=== PATIENT | female | born 1960 | race Caucasian/White ===

== ENCOUNTER → 2017-09-06 15:12 | Outpatient (CLI) | payer OTHER, SELFPAY ==
--- NOTE | 2017-09-06 15:15 | HPBI_ITS ---
MAMMOGRAPHY - BILATERAL SCREENING REASON FOR EXAM: Female, 56 years old. Routine annual screening examination. PERTINENT HISTORY: Non-contributory. TECHNIQUE: Digital bilateral breast sergey (3D mammographic acquisition) in the CC and MLO projections. 2-D mediolateral oblique (MLO) and craniocaudad (CC) views of both breasts were obtained. CAD: Full Field Digital Mammography with Computer Added Detection was performed. COMPARISON: Comparison is made with prior study dated May 18, 2016 and February 11, 2015. FINDINGS: Breast Composition: The breasts are heterogeneously dense, which may obscure small masses. There are no dominant masses or suspicious calcifications. Stable bilateral benign-appearing axillary lymph nodes. No other significant abnormalities are identified. There has been no significant change since the prior study. HPBI/SCREENING MAMM (CAD), BILAT IMPRESSION: Stable bilateral screening mammogram. Yearly follow-up mammogram recommended. (A) ASSESSMENT CATEGORY: BIRADS Category 2: Benign. A letter regarding these results will be sent to the patient by the facility within 30 days. Approximately 10% of breast cancers are not detected by mammography. A normal mammogram should not delay biopsy of a clinically suspicious abnormality. [id number] Electronically Signed: Pal Ruby MD at 9:21 EST Tel [phone], Service support ,
== END ==
PROVIDERS: Family Provider Family Medicine; PCP Family Medicine; Visit Provider Obstetrics & Gynecology
DX: Z12.31 Encounter for screening mammogram for malignant neoplasm of breast (principal)
CPT/HCPCS: 77063; 77067

== ENCOUNTER → 2018-01-10 17:28 | Outpatient (CLI) | payer OTHER, SELFPAY ==
[2018-01-14 10:25] LABS: HPV Reflexed? NOT INDICATED
== END ==
PROVIDERS: Family Provider Family Medicine; PCP Family Medicine; Visit Provider Obstetrics & Gynecology
DX: Z12.4 Encounter for screening for malignant neoplasm of cervix (principal)
CPT/HCPCS: 88175; G0145

== ENCOUNTER → 2019-03-14 07:39 | Outpatient (CLI) | payer OTHER, SELFPAY ==
--- NOTE | 2019-03-14 07:47 | BI_ITS ---
MAMMOGRAPHY - BILATERAL SCREENING REASON FOR EXAM: Female, 58 years old. Routine annual screening examination. PERTINENT HISTORY: Non-contributory. TECHNIQUE: Digital bilateral breast abelardo (3D mammographic acquisition) in the CC and MLO projections. 2-D mediolateral oblique (MLO) and craniocaudad (CC) views of both breasts were obtained. CAD: Full Field Digital Mammography with Computer Added Detection was performed. COMPARISON: Comparison is made with prior examination dated September 06, 2017 and May 18, 2016. FINDINGS: Breast Composition: The breasts are heterogeneously dense, which may obscure small masses. There are no dominant masses or suspicious calcifications. Stable small bilateral axillary lymph nodes. No other significant abnormalities are identified. There has been no significant change since the prior study. BI/SCREEN MAMM (CAD) W/ABELARDO BILAT IMPRESSION: Stable bilateral screening mammogram. Yearly follow-up mammogram recommended. (A) ASSESSMENT CATEGORY: BIRADS Category 2: Benign. A letter regarding these results will be sent to the patient by the facility within 30 days. Approximately 10% of breast cancers are not detected by mammography. A normal mammogram should not delay biopsy of a clinically suspicious abnormality. [id number] Electronically Signed: Pal Ruby, at 10:35 EDT , Service support ,
== END ==
PROVIDERS: Family Provider Family Medicine; PCP Family Medicine; Referring Provider Obstetrics & Gynecology; Visit Provider Obstetrics & Gynecology
DX: Z12.31 Encounter for screening mammogram for malignant neoplasm of breast (principal)
CPT/HCPCS: 77063; 77067

== ENCOUNTER → 2020-03-05 08:57 | Outpatient (CLI) | payer OTHER, SELFPAY ==
[2020-03-09 12:27] LABS: HPV Reflexed? NOT INDICATED
== END ==
PROVIDERS: PCP Family Medicine; Visit Provider Obstetrics & Gynecology
DX: Z12.4 Encounter for screening for malignant neoplasm of cervix (principal)
CPT/HCPCS: 88175; G0145

== ENCOUNTER → 2020-04-24 07:22 | Outpatient (CLI) | payer OTHER, SELFPAY ==
--- NOTE | 2020-04-23 17:17 | BI_ITS ---
MAMMOGRAPHY - BILATERAL SCREENING REASON FOR EXAM: Female, 59 years old. Routine annual screening examination. PERTINENT HISTORY: Non-contributory. TECHNIQUE: Digital bilateral breast abelardo (3D mammographic acquisition) in the CC and MLO projections. 2-D mediolateral oblique (MLO) and craniocaudad (CC) views of both breasts were obtained. CAD: Full Field Digital Mammography with Computer Added Detection was performed. COMPARISON: Comparison is made with prior examination dated 03/14/2019 and 09/06/2017. FINDINGS: Breast Composition: The breasts are heterogeneously dense, which may obscure small masses. There are no dominant masses or suspicious calcifications. No other significant abnormalities are identified. There has been no significant change since the prior study. BI/SCREEN MAMM (CAD) W/ABELARDO BILAT IMPRESSION: Stable bilateral screening mammogram. Yearly follow-up mammogram recommended. (A) ASSESSMENT CATEGORY: BIRADS Category 1: Negative. A letter regarding these results will be sent to the patient by the facility within 30 days. Approximately 10% of breast cancers are not detected by mammography. A normal mammogram should not delay biopsy of a clinically suspicious abnormality. [id number] Electronically Signed: Pal Ruby, at 8:31 EDT , Service support ,
== END ==
PROVIDERS: PCP Family Medicine; Referring Provider Obstetrics & Gynecology; Visit Provider Obstetrics & Gynecology
DX: Z12.31 Encounter for screening mammogram for malignant neoplasm of breast (principal)
CPT/HCPCS: 77063; 77067

== ENCOUNTER → 2021-02-03 11:38 | Outpatient (CLI) | payer OTHER, SELFPAY ==
--- NOTE | 2021-02-03 11:50 | RAD_ITS ---
EXAM DESCRIPTION: Right hip injection under fluoroscopy CLINICAL HISTORY: 60 years Female, PAIN RIGHT HIP COMPARISON: None. TECHNIQUE: The procedure was explained to the patient. After this, a skin site was marked and sterilely prepped and draped in usual fashion. Needle was inserted into the right hip joint and small amount contrast was injected followed by 9 cc of diluted MRI contrast. FINDINGS: The contrast flowed freely into the joint and was seen surrounding the right femoral head. The patient tolerated the procedure well and was sent to MRI for additional imaging. RAD/Arthrogram Hip w/ MRI IMPRESSION: Normal right hip arthrogram Electronically Signed: Donaldo Mary DO at 12:47 EDT Tel , Service support ,
[2021-02-03] MEDS: Iopamidol 10 ML in Syringe 1 EACH 600 ML IV (12:00)
[2021-02-03] MEDS: Lidocaine 2% (5ml sdv) 5 ML VIAL.MPF INFILT (12:00)
--- NOTE | 2021-02-03 12:31 | MRI_ITS ---
STUDY: MRI RIGHT HIP ARTHROGRAM REASON FOR EXAM: Female, 60 years old. MR RT HIP ARTHROGRAM, PAIN TECHNIQUE: Standardized fat and water weighted pulse sequences were obtained in all 3 orthogonal planes. Arthrographic technique. Intra-articular gadolinium administration with 9 mL gadolinium solution. C. Shayne M technique. COMPARISON: None. FINDINGS: Small superior anterior labral tear with additional superior lateral labral degeneration (coronal images 10 through 14 series 4). Anterior-inferior labral degeneration (coronal image series 4) with mild capsular thickening. Mild/moderate cartilage loss predominating at the superior lateral aspect of the joint space. No acute fracture, dislocation or bone destruction. Capsular ligaments remain intact. No bursitis. Mild pubic symphysis arthrosis. Normal sacroiliac joint. Right proximal femur and pelvis intact. Normal hamstring tendon. Normal rectus femoris tendon. Normal gluteus medius/minimus tendons. Normal iliopsoas tendons. Normal adductor tendons. No significant muscle atrophy. Visualized intra-abdominal/pelvic contents within normal limits. No solid, cystic or lipomatous soft tissue lesions. Normal neurovascular bundle. MRI/Lower Ext/Jt Only/W Contrast IMPRESSION: Small superior anterior labral tear with labral degeneration Anterior inferior labral degeneration with mild capsular thickening Mild/moderate right hip cartilage loss Electronically Signed: Jayesh Curran DO at 13:45 EDT Tel , Service support ,
== END ==
PROVIDERS: PCP Family Medicine; Referring Provider Specialist; Visit Provider Specialist
DX: M25.551 Pain in right hip (principal); M25.851 Other specified joint disorders, right hip
CPT/HCPCS: 27093; 73722; 77002; A9575; Q9967

== ENCOUNTER → 2021-05-31 08:22 | Outpatient (CLI) | payer OTHER, SELFPAY ==
--- NOTE | 2021-05-31 08:24 | BI_ITS ---
MAMMOGRAPHY - BILATERAL SCREENING REASON FOR EXAM: Female, 60 years old. Routine annual screening examination. PERTINENT HISTORY: Non-contributory. TECHNIQUE: Digital bilateral breast abelardo (3D mammographic acquisition) in the CC and MLO projections. 2-D mediolateral oblique (MLO) and craniocaudad (CC) views of both breasts were obtained. CAD: Full Field Digital Mammography with Computer Added Detection was performed. COMPARISON: Comparison is made with prior examination done 04/23/2020 and 03/14/2019. FINDINGS: Breast Composition: The breasts are heterogeneously dense, which may obscure small masses. There are no dominant masses or suspicious calcifications. Stable small benign-appearing bilateral axillary lymph nodes. No other significant abnormalities are identified. There has been no significant change since the prior study. BI/SCRN MAMM (CAD)W/ABELARDO BILAT IMPRESSION: Stable bilateral screening mammogram. Yearly follow-up mammogram recommended. (A) ASSESSMENT CATEGORY: BIRADS Category 2: Benign. A letter regarding these results will be sent to the patient by the facility within 30 days. Approximately 10% of breast cancers are not detected by mammography. A normal mammogram should not delay biopsy of a clinically suspicious abnormality. [id number] Electronically Signed: Pal Ruby MD at 10:47 EST , Service support ,
== END ==
PROVIDERS: PCP Family Medicine; Referring Provider Obstetrics & Gynecology; Visit Provider Obstetrics & Gynecology
DX: Z12.31 Encounter for screening mammogram for malignant neoplasm of breast (principal)
CPT/HCPCS: 77063; 77067

== ENCOUNTER → 2022-06-13 | Outpatient (CLI) | payer OTHER, SELFPAY ==
[2022-06-22 14:13] LABS: HPV APTIMA, High Risk Negative (Negative)
== END | disposition home or self-care (01) ==
LOC: LABSPEC 16:12
PROVIDERS: PCP Family Medicine; Visit Provider Student in an Organized Health Care Education/Training Program
DX: Z12.4 Encounter for screening for malignant neoplasm of cervix (principal)
CPT/HCPCS: 87624; 88175; G0145

== ENCOUNTER → 2022-06-17 | Outpatient (CLI) | payer OTHER, SELFPAY ==
--- NOTE | 2022-06-17 09:00 | KNEE_PTH ---
PATIENT: BRODERICK LERNER LOC: [facility] U#:[id number] AGE/SX: 61/F ROOM: RE06/17/[address]: Dr. Isidro Gregg MD : 1960 BED: DIS: 06/17/2022 SPEC #: [id number] RECD: 06/17/22 15:19 STATUS: OPAL REMyke #: [id number] DALLIN: 06/17/22 09:[address]: Isidro Gregg DEPT: SURGICAL PATHOLOGY RECD BY: Melissa Navarro ENTERED: 06/20/22 08:57 SP TYPE: TOTAL KNEE OTHR DR: Dr. Reese Pradhan MD [facility] Tissues: Knee, NOS Procedures: Decalcification bone/plaque Surgery Specimen Level IV HEADER OPERATION: Left total knee arthroplasty PRE-OP DIAGNOSIS: Grade 4 posttraumatic osteoarthritis left knee TISSUE SUBMITTED: Left knee bone and tissue MICROSCOPIC DIAGNOSIS Bone and soft tissue, left knee, total knee replacement/resection: Pieces of bone with degenerative osteoarthritic changes. Fibroadipose tissue, fibroconnective tissue, fibrocartilaginous tissue and reactive synovial tissue. MARIYA:kori 06/23/2022 MICROSCOPIC DESCRIPTION Slides are reviewed. GROSS DESCRIPTION Received is one container designated bone and tissue left knee. The specimen consists of multiple fragments of olivo-yellow bone measuring in aggregate 11 x 11 x 2 cm. Also in the specimen container is cartilaginous tissue measuring in aggregate 4 x 1 x 0.5 cm. A number of bony fragments contain articular surfaces consistent with tibial plateau and femoral condyle and displaying prominent osteophyte formation, eburnation, and bone erosion. Functional Consultant sections are submitted in two cassettes as follows: 1 - soft tissue, 2 - bone after decalcification. / MARIYA:kori 06/20/2022 TC:5 [facility]: [id number]
== END | disposition home or self-care (01) ==
LOC: LABSPEC 15:53
PROVIDERS: PCP Family Medicine; Visit Provider Orthopaedic Surgery
DX: M17.12 Unilateral primary osteoarthritis, left knee (principal)
CPT/HCPCS: 88305; 88311

== ENCOUNTER 2023-07-20 11:31 | Day surgery (SDC) | payer OTHER, SELFPAY ==
[2023-07-20] VITALS (7 sets, daily range): BP systolic 107–134; BP diastolic 54–78; PULSE 65–86; RESP 16–18; TEMP 36.7–37; O2SAT 94–100; BMI 23.6
[2023-07-20] MEDS: Lactated Ringers 1,000 ML 15 ML IV (12:05)
[2023-07-20 12:15] LABS: Hematocrit 40.6 % (37-47); Hemoglobin 13.3 g/dL (12.0-15.0); Mean Corp Hgb Conc 32.8 g/dL (32-36); Mean Corpuscular Volume 94.6 fL (81-99); Platelet Count 240 K/mm3 (150-450); RBC Distribution Width CV 12.4 % (11.6-14.6); Red Blood Count 4.29 M/mm3 (4.2-5.4); White Blood Count 4.5 K/mm3 (4.4-11.0)
[2023-07-20 12:34] LABS: Anion Gap 3 (5-15); BUN 16 mg/dL (7-18); BUN/Creat Ratio 21.9 RATIO (10-20); Calcium,Total 9.2 mg/dL (8.5-10.1); Chloride 108 mmol/L (98-107); Creatinine, Serum 0.73 mg/dL (0.55-1.02); EST Glomerular Filtration Rate 86 mL/min (>60); Est Glom Filt Rate - Afr Amer 105 mL/min (>60); Estimated Creatinine Clearance 82.67 ml/min; Glucose 94 mg/dL (74-106); Sodium Level 138 mmol/L (136-145)
--- NOTE | 2023-07-20 12:57 | DCINST_ITS ---
Discharge Instructions Diet Discharge Diet: No restrictions Activity Discharge Activity: May Drive (once you are more than 24 hours out from surgery) and May Shower (once you are more than 24 hours out from surgery) May resume sexual activity in: 1-2 weeks (no tampons, intercourse, soaking in water while you are having the bleeding for 1-2 weeks) Weight Bearing Status: Weight bearing as tolerated Lifting Restrictions: none Dressing / Incision Call your doctor if you observe: Fever of 101 or Higher, Coldness, Increased Pain, Numbness or Tingling, Change in Color, Inability to urinate, Inability to have a bowel movement, Using more than 1 pad per hour, Shortness of breath, Dizziness, Fainting spells, Swelling in the ankles, Chest pain, Increased pa lpitations (irregular heartbeat), Calf discomfort and Uncontrolled pain Follow Up Care Please Follow Up With: Elvira Carmona DO When: 1-2 weeks for post op Test Results: Test results from this visit will be discussed in further detail at your follow- up appointment, if applicable. Discharge Plan Admission Primary Reason for Your Visit: surgery Attending Provider: Elvira Carmona Primary Care Provider: Reese Pradhan Instructions Patient Instructions: Dilation and Curettage Discharge Orders/Prescriptions Prescriptions: Continued meloxicam 15 mg tablet 15 mg PO DAILY Patient Comments: take 1 tablet by mouth once daily progesterone micronized 200 mg capsule 200 mg PO DAILY PRN Patient Comments: take 1 capsule by mouth once daily ON THE FIRST 12 DAYS OF THE MONTH fluoxetine 20 mg capsule 20 mg PO DAILY Patient Comments: take 1 capsule by mouth daily estradiol 1 mg tablet 1 mg PO DAILY Patient Comments: take 1 tablet by mouth once daily multivitamin [Daily Multi-Vitamin] Tablet 1 tab PO DAILY Referrals / Follow Up: Reese Pradhan MD [Primary Care Provider] - Disposition Disposition (needs filled in before D/C Order can be placed): Home, Self Care
--- NOTE | 2023-07-20 13:00 | EMB_PTH ---
PATHOLOGY RESULTS PATIENT: BRODERICK LERNER LOC: [facility] [place] U#:[id number] AGE/SX: 62/F ROOM: RE07/20/[address]: Dr. Elvira Carmona DO : 1960 BED: DIS: 07/20/2023 SPEC #: [id number] RECD: 07/21/23 07:34 STATUS: OPAL KESHIA #: [id number] DALLIN: 07/20/23 13:[address]: Elvira Carmona DEPT: SURGICAL PATHOLOGY RECD BY: Melissa Navarro ENTERED: 07/21/23 10:06 SP TYPE: ENDOM BX/C ISIDRA DR: Dr. Reese Pradhan MD Tissues: Endometrium, NOS Procedures: Surgery Specimen Level IV HEADER OPERATION: Hysteroscopy, D & C Symphion PRE-OP DIAGNOSIS: PMB TISSUE SUBMITTED: Endometrial curettings and polyp MICROSCOPIC DIAGNOSIS Endometrial curettings and polyp: Polypoid fragments of mildly disordered proliferative endometrium. Rare fragments of benign squamous mucosa. Rare fragments of benign superficial endocervix. Mild chronic endometritis. AM:kori 07/24/2023 MICROSCOPIC DESCRIPTION Slides are reviewed. GROSS DESCRIPTION Received in fixative is one container labeled with the patient's name and designated endometrial curettings and polyp. The specimen consists of multiple fragments of hemorrhagic tissue that in aggregate measure 3.0 x 2.5 x 0.3 cm. The specimen is totally submitted in one cassette. / SJ:kori 07/21/2023 TC:3 CPT: 39586
--- NOTE | 2023-07-20 13:22 | PCM.OPRPT ---
Problems Associated Problem List Diagnoses (1) PMB (postmenopausal bleeding): (2) Thickened endometrium: Report of Operation Date of Procedure: 07/20/23 Pre-Operative Diagnosis: PMB, thickened endometrium Post-Operative Diagnosis: As above, endometrial polyp Surgery/Procedure Performed:: Hysteroscopy, D&C, polypectomy with Symphion Description of Surgical Findings:: 1 endometrial polyp noted. Otherwise normal appearing uterine cavity Surgeon: Elvira Carmona Type of Anesthesia: MAC Special Medications: None Specimen's removed: Endometrial curettings and endometrial polyp Drains: None Estimated Blood Loss (mL): < 50 Fluids Replaced: 300 cc deficit Description of Procedure: The patient was taken to the operating room where MAC anesthesia was found to be adequate. She was prepped and draped in the dorsal lithotomy [facility]. A weighted speculum was placed in the vagina to expose the cervix. A single-tooth tenaculum was placed on the anterior lip of the cervix. The cervix was serially dilated to accommodate the Symphion hysteroscope. The Symphion hysteroscope was advanced into the uterus, which was distended with normal saline as distension media. 1 endometrial polyp was noted along the anterior uterine wall. The Symphion resection device was used to remove the polyp. The cavity was otherwise normal-appearing, and the endometrium was moderately thickened. Bilateral tubal ostia were noted. The hysteroscope was removed. A sharp curettage was performed. Endometrial polyp and endometrial cuttings were sent to pathology for review. All instruments were removed from the vagina. Bleeding was hemostatic. A vaginal sweep was performed. The patient was taken to the recovery room in stable condition. Grafts/Implants Used: None Procedure Start Time: 12:58 Procedure Stop Time: 13:21 Complications None Admit VTE Documentation VTE Present on Admission: No VTE Mechan Device Prophylaxis: SCD's
== END 2023-07-20 14:31 | disposition home or self-care (01) ==
LOC: SDC 11:32 → AC 11:33
PROVIDERS: PCP Family Medicine; Referring Provider Obstetrics & Gynecology; Visit Provider Obstetrics & Gynecology
PROC: 0UB98ZZ Excision of Uterus, Via Natural or Artificial Opening Endoscopic (ICD-10-PCS; CPT 58558; principal; 2023-07-20 12:45)
DX: N71.1 Chronic inflammatory disease of uterus (principal); N95.0 Postmenopausal bleeding; N84.0 Polyp of corpus uteri; F41.9 Anxiety disorder, unspecified; Z79.899 Other long term (current) drug therapy; Z87.891 Personal history of nicotine dependence
CPT/HCPCS: 58558; 00952; 80048; 85027; 86850; 86900; 86901; 88305; J7120; J2405